=== PATIENT | female | born 1990 | race Caucasian/White ===

== ENCOUNTER → 2017-03-28 | Outpatient (REF) | payer BC | LOC: M SFHCWAGY 11:27 | PROVIDERS: ATTEND Nurse Practitioner Women's Health | DX: Z11.3 Encounter for screening for infections with a predominantly sexual mode of transmission (principal); N94.10 Unspecified dyspareunia ==

== ENCOUNTER → 2017-05-22 | Outpatient (REF) | payer BC | LOC: M SFHCWAGY 10:57 | PROVIDERS: ATTEND Nurse Practitioner Women's Health | DX: Z01.411 Encounter for gynecological examination (general) (routine) with abnormal findings (principal); R85.612 Low grade squamous intraepithelial lesion on cytologic smear of anus (LGSIL) ==

== ENCOUNTER → 2017-06-18 | Outpatient (REF) | payer BC | LOC: M SFHCWAGY 13:50 | PROVIDERS: ATTEND Nurse Practitioner Women's Health | DX: R87.612 Low grade squamous intraepithelial lesion on cytologic smear of cervix (LGSIL) (principal) ==

== ENCOUNTER → 2017-09-01 | Outpatient (REF) | payer BC | LOC: M WUC 08:39 | PROVIDERS: ATTEND Physician Assistant | DX: N39.0 Urinary tract infection, site not specified (principal) ==

== ENCOUNTER → 2017-12-18 | Outpatient (REF) | payer BC ==
[2017-12-19 00:39] LABS: CHLAMYDIA DNA AMPLIFICATION NEGATIVE (NEGATIVE); GC DNA AMPLIFICATION NEGATIVE (NEGATIVE)
== END ==
LOC: M SFHCWAGY 17:03
DX: N94.10 Unspecified dyspareunia (principal); N89.8 Other specified noninflammatory disorders of vagina
CPT/HCPCS: 87591

== ENCOUNTER → 2018-01-13 | Outpatient (REF) | payer BC ==
[2018-01-13 19:14] LABS: INFLUENZA A AMPLIFICATION NEGATIVE (NEGATIVE); INFLUENZA B AMPLIFICATION NEGATIVE (NEGATIVE)
== END ==
LOC: M LAB REF 18:28
DX: J11.1 Influenza due to unidentified influenza virus with other respiratory manifestations (principal)
CPT/HCPCS: 87502

== ENCOUNTER 2018-02-03 16:19 | Emergency (ER) | payer BC ==
[2018-02-03] MEDS: ALBUTEROL SULFATE 2.5 MG/0.5 ML INH NEB SOLN NEB (18:15)
[2018-02-03] MEDS: predniSONE 20 MG TAB PO (18:32)
[2018-02-03] MEDS: AUGMENTIN 875 MG TAB PO (18:32)
[2018-02-03] MEDS: BENZONATATE 100 MG CAP PO (18:32)
[2018-02-03 18:43] LABS: KETONE, URINE AUTO RFX NEGATIVE (NEGATIVE); LEUKOCYTE ESTERASE UR AUTO RFX NEGATIVE (NEGATIVE); MUCUS, URINE RFX SMALL (NEGATIVE); NITRITE, URINE AUTO RFX NEGATIVE (NEGATIVE); RBC, URINE AUTO RFX 2 /HPF (0-3); SPECIFIC GRAVITY UR AUTO RFX 1.018 (1.002-1.035); SQUAM EPITHELIAL CELL UR AURFX 1 /HPF (0-6); WBC, URINE AUTO RFX 2 /HPF (0-3)
== END 2018-02-03 19:54 | disposition home or self-care (01) ==
LOC: M ED 16:19
DX: H65.90 Unspecified nonsuppurative otitis media, unspecified ear (principal); J45.909 Unspecified asthma, uncomplicated; Z88.5 Allergy status to narcotic agent; Z79.3 Long term (current) use of hormonal contraceptives
CPT/HCPCS: 71046

== ENCOUNTER → 2018-07-03 | Outpatient (REF) | payer BC ==
[2018-07-03 17:11] LABS: ESTIMATED AVERAGE GLUCOSE 94 MG/DL (60-110); HEMOGLOBIN A1c 4.9 %
[2018-07-03 17:38] LABS: TOTAL 25(OH) VITAMIN D 29.7 NG/ML (30.0-100.0)
[2018-07-03 17:38] LABS: VITAMIN B12 LEVEL 1248 PG/ML (247-911)
[2018-07-03 17:43] LABS: BASO % 0.5 % (0.0-1.0); EOS # 0.1 10^3/uL (0.0-0.50); EOS % 0.8 % (0.0-3.0); HEMATOCRIT 37.6 % (36.0-47.0); HEMOGLOBIN 12.6 g/dl (12.0-15.5); IMMATURE GRANULOCYTE % 0.2 % (0-3.0); LYMPH # 1.9 10^3/uL (1.5-6.5); LYMPH % 29.8 % (24.0-44.0); MEAN CORPUSCULAR HEMOGLOBIN 28.6 pg (27.0-33.0); MEAN CORPUSCULAR HGB CONC 33.5 g/dl (32.0-36.5); MEAN CORPUSCULAR VOLUME 85.3 fl (80.0-96.0); MONO # 0.4 10^3/uL (0.0-0.8); MONO % 6.1 % (0.0-5.0); NEUTROPHILS # 3.9 10^3/uL (1.8-7.7); NEUTROPHILS % 62.6 % (36.0-66.0); PLATELET COUNT, AUTOMATED 348 10^3/uL (150-450); RED BLOOD COUNT 4.41 10^6/uL (4.00-5.40); RED CELL DISTRIBUTION WIDTH 13.3 % (11.5-14.5); WHITE BLOOD COUNT 6.2 10^3/uL (4.0-10.0)
[2018-07-03 18:23] LABS: ALBUMIN 3.6 GM/DL (3.2-5.2); ALKALINE PHOSPHATASE 70 U/L (45-117); ALT/SGPT 34 U/L (12-78); ANION GAP 10 MEQ/L (8-16); AST/SGOT 29 U/L (7-37); BILIRUBIN,TOTAL 0.6 MG/DL (0.2-1.0); BLOOD UREA NITROGEN 13 MG/DL (7-18); CALCIUM LEVEL 8.8 MG/DL (8.5-10.1); CARBON DIOXIDE LEVEL 24 MEQ/L (21-32); CHLORIDE LEVEL 106 MEQ/L (98-107); CHOLESTEROL LEVEL 164 MG/DL (<200); CHOLESTEROL RISK RATIO 2.376 (<5); CREATININE FOR GFR 0.84 MG/DL (0.55-1.30); GLOMERULAR FILTRATION RATE > 60.0 (>60); GLUCOSE, FASTING 76 MG/DL (70-100); HDL CHOLESTEROL 69 MG/DL (>40); LDL CHOLESTEROL 82.8 MG/DL (<100); NON-HDL-C 95 MG/DL; POTASSIUM SERUM 4.5 MEQ/L (3.5-5.1); SODIUM LEVEL 140 MEQ/L (136-145); TOTAL PROTEIN 7.2 GM/DL (6.4-8.2); TRIGLYCERIDES LEVEL 61 MG/DL (<150)
== END ==
LOC: M SFHCCAPE 08:35
DX: F41.9 Anxiety disorder, unspecified (principal); Z13.6 Encounter for screening for cardiovascular disorders
CPT/HCPCS: 84443

== ENCOUNTER → 2018-07-17 | Outpatient (CLI) | payer BC | LOC: M RAD 12:44 | DX: J32.0 Chronic maxillary sinusitis (principal) | CPT/HCPCS: 70486 ==

== ENCOUNTER → 2018-07-23 | Outpatient (REF) | payer BC ==
[2018-07-25 15:01] LABS: HPV HYBRID CAPTURE II Negative (Negative)
== END ==
LOC: M SFHCWAGY 10:57
DX: Z12.4 Encounter for screening for malignant neoplasm of cervix (principal)
CPT/HCPCS: G0123

== ENCOUNTER → 2018-12-05 | Outpatient (REF) | payer OTHER ==
[~2018-12-05] MED LIST: AUGM875T28 PO; DOXY200C PO; ORSYTAB; PRED20TA PO; QVAR80AE10 IN
== END ==
LOC: M SFHCWAGY 13:02
PROVIDERS: ATTEND Nurse Practitioner Women's Health
DX: Z11.4 Encounter for screening for human immunodeficiency virus [HIV] (principal)

== ENCOUNTER → 2019-01-20 | Outpatient (CLI) | payer OTHER ==
--- NOTE | 2019-01-21 16:04 | SLEEPHOME ---
DATE OF PROCEDURE: 01/20/2019 ORDERED BY: Rhoda Bailey Diagnostic home sleep testing was performed for evaluation of sleep apnea syndrome symptoms in this patient with a history of excessive somnolence and nonrestorative sleep. For testing a nocturnal T3 respiratory monitoring device was used. Continuous record was made of pulse, oxygen saturation, airflow, chest, abdominal strain and body position. 9 hours and 59 minutes of data were reviewed. Of these, 6 hours and 2 minutes were marked as time in bed. During the interval marked time in bed, there were 32 respiratory events identified of 10 seconds in duration or greater. The events were not exclusive to sleep position. They were primarily obstructive. The patient's baseline pulse rate was 55 beats per minute, pulse rate ranged from 46-99. Baseline saturation 96%, saturations were seen to 81%. The oxygen desaturation index was 1.8. Testing was performed in both the supine and nonsupine positions. IMPRESSION: Abnormal home sleep testing with repetitive respiratory events and oxygen desaturations to 81% with a respiratory event index of 5.3 is consistent with the obstructive sleep apnea syndrome. RECOMMENDATIONS: The patient should be encouraged to undergo a formal sleep evaluation and in laboratory pressure titration.
== END ==
LOC: M SLEEP HO 13:53
PROVIDERS: ATTEND Nurse Practitioner Family
DX: R40.0 Somnolence (principal)

== ENCOUNTER → 2019-03-21 | Outpatient (REF) | payer OTHER ==
[2019-03-21 13:16] LABS: FREE THYROXINE INDEX 2.7 % (1.3-4.8); THYROID STIMULATING HORMONE 2.26 uIU/ML (0.358-3.740); THYROXINE (T4) 9.1 UG/DL (4.5-12.0)
== END ==
LOC: M SFHCWAGY 03-20 09:00
PROVIDERS: ATTEND Nurse Practitioner Women's Health
DX: R68.82 Decreased libido (principal)

== ENCOUNTER → 2019-04-01 | Outpatient (REF) | payer OTHER ==
[2019-04-01 19:00] LABS: APPEARANCE, URINE CLEAR (CLEAR); BACTERIA, URINE AUTO 1+ (NEGATIVE); BILIRUBIN, URINE AUTO NEGATIVE (NEGATIVE); BLOOD, URINE BLOOD NEGATIVE (NEGATIVE); COLOR, URINE YELLOW (YELLOW); GLUCOSE, URINE (UA) AUTO NEGATIVE (NEGATIVE); KETONE, URINE AUTO NEGATIVE (NEGATIVE); LEUKOCYTE ESTERASE, URINE AUTO NEGATIVE (NEGATIVE); NITRITE, URINE AUTO NEGATIVE (NEGATIVE); PROTEIN, URINE AUTO NEGATIVE (NEGATIVE); RBC, URINE AUTO 0 /HPF (0-3); SPECIFIC GRAVITY URINE AUTO 1.003 (1.002-1.035); SQUAMOUS EPITHELIAL CELL UR AU 1 /HPF (0-6); UROBILINOGEN, URINE AUTO 0.2 mg/dL (0.0-2.0); WBC, URINE AUTO 0 /HPF (0-3)
[2019-04-01 20:08] LABS: CHLAMYDIA DNA AMPLIFICATION NEGATIVE (NEGATIVE); GC DNA AMPLIFICATION NEGATIVE (NEGATIVE)
== END ==
LOC: M SFHCCAPE 13:16
PROVIDERS: ATTEND Physician Assistant
DX: R10.2 Pelvic and perineal pain (principal)

== ENCOUNTER → 2019-04-07 | Outpatient (CLI) | payer OTHER ==
--- NOTE | 2019-04-08 06:19 | REP ---
Clinical: Pelvic pain and dyspareunia . Technique: Transabdominal pelvic ultrasound followed by transvaginal examination for better evaluation of the endometrium and adnexa with color Doppler evaluation of the ovaries. Findings: Bladder is unremarkable and measures 9.3 x 5.6 x 8.7 cm . Normal anteverted uterus measures 7.9 x 3.1 x 5.2 cm . The endometrial complex measures 4.8 mm thickness. No discrete uterine or endometrial abnormalities are appreciated. Bilateral ovaries are normal in appearance and vascularity without evidence for torsion. Right ovary measures 2.2 x 2.1 x 2.2 cm zero ; R I = 0.43 . Left ovary measures 5.1 x 3.1 x 4.6 cm with 4.6 cm complex cyst with debris; R I = 0.56 . No pelvic fluid or adnexal mass lesion . Impression: 1. 4.6 cm complex cyst in the left ovary. 2. No further acute process appreciated.
== END ==
LOC: M WHC 08:12
PROVIDERS: ATTEND Physician Assistant
DX: N83.202 Unspecified ovarian cyst, left side (principal); N94.10 Unspecified dyspareunia

== ENCOUNTER → 2019-09-23 | Outpatient (REF) | payer OTHER | LOC: M SFHCWAGY 10:29 | PROVIDERS: ATTEND Nurse Practitioner Women's Health | DX: Z12.4 Encounter for screening for malignant neoplasm of cervix (principal) ==

== ENCOUNTER → 2019-10-16 | Outpatient (CLI) | payer OTHER ==
--- NOTE | 2019-10-16 16:49 | REP ---
Chest x-ray: Two views. History: Cough. Comparison study: February 03, 2018. Findings: The lungs are well inflated and free of infiltrate. The pleural angles are sharp. The heart size is normal. Pulmonary vasculature is not increased. No significant bony abnormality is seen. Impression: Negative chest x-ray. Electronically Signed by Jaison Quiles MD 10/16/2019 04:40 P
== END ==
LOC: M LRY 16:07
PROVIDERS: ATTEND Physician Assistant
DX: R05 Cough (principal)

== ENCOUNTER → 2020-04-15 | Outpatient (CLI) | payer BC | LOC: M LABSMTC 13:31 | PROVIDERS: ATTEND Pediatrics | DX: Z11.59 Encounter for screening for other viral diseases (principal) ==

== ENCOUNTER → 2020-07-06 | Outpatient (CLI) | payer BC ==
[2020-07-06 18:27] LABS: BASO % 0.3 % (0.0-1.0); EOS # 0.1 10^3/uL (0.0-0.5); EOS % 0.4 % (0.0-3.0); HEMATOCRIT 38.7 % (36.0-47.0); HEMOGLOBIN 12.7 g/dl (12.0-15.5); LYMPH # 2.3 10^3/uL (1.5-5.0); LYMPH % 19.2 % (24.0-44.0); MEAN CORPUSCULAR HGB CONC 32.8 g/dl (32.0-36.5); MEAN CORPUSCULAR VOLUME 88.4 fl (80.0-96.0); MONO # 0.9 10^3/uL (0.0-0.8); MONO % 7.1 % (0.0-5.0); NEUTROPHILS # 8.7 10^3/uL (1.5-8.5); NEUTROPHILS % 72.6 % (36.0-66.0); PLATELET COUNT, AUTOMATED 339 10^3/uL (150-450); RED BLOOD COUNT 4.38 10^6/uL (4.00-5.40)
[2020-07-06 19:19] LABS: HEPATITIS C VIRUS ABY INDEX 0.2 INDEX (<0.8); HIV 1&2 SCREEN CENTAUR NEGATIVE (NEGATIVE)
[2020-07-06 21:33] LABS: CHLAMYDIA DNA AMPLIFICATION NEGATIVE (NEGATIVE); GC DNA AMPLIFICATION NEGATIVE (NEGATIVE)
== END ==
LOC: M PLALAB 15:31
PROVIDERS: ATTEND Advanced Practice Midwife
DX: Z34.01 Encounter for supervision of normal first pregnancy, first trimester (principal); Z3A.00 Weeks of gestation of pregnancy not specified

== ENCOUNTER → 2020-08-30 | Outpatient (REF) | payer BC, OTHER | LOC: M SFHCWAGY 13:25 | PROVIDERS: ATTEND Advanced Practice Midwife | DX: Z34.02 Encounter for supervision of normal first pregnancy, second trimester (principal) ==

== ENCOUNTER → 2020-09-09 | Outpatient (CLI) | payer BC ==
--- NOTE | 2020-09-09 09:18 | REP ---
INDICATION: ANATOMY. Supervision of . COMPARISON: None. TECHNIQUE: Transabdominal obstetric sonography. FINDINGS: Scanning through the gravid uterus demonstrates a viable single intrauterine gestation in transverse, head to the maternal left lie. motion is observed and heart rate is recorded at 158 beats per minute. A posterior placenta is seen, grade 0, without evidence of placenta previa. Amniotic fluid is subjectively normal. Closed cervical length is measured at 3.7 cm transabdominally. No extrauterine abnormality is observed. The following anatomic structures are less than optimally seen due to position and early gestational age: nose and lips, four-chamber heart with left and right ventricular outflow tract views, and diaphragm. The following anatomic structures are identified felt to be unremarkable: cranium intracranial anatomy, facial profile, left-sided stomach, right and left kidney, urinary bladder, spine, upper and lower extremities, three-vessel cord.. Biometry chart: BPD 3.9 cm, 17 weeks 6 days Head circumference 14.8 cm, 17 weeks 6 days Abdominal circumference 12.3 cm, 17 weeks 6 days Femur length 2.6 cm, 18 weeks 0 days Humeral length 2.5 cm, 17 weeks 6 days HC AC ratio normal 1.21 Cephalic index normal 0.73 Estimated weight 217 g, 0 lb 7 oz, 42nd percentile for 18 weeks 0 days IMPRESSION: Viable single intrauterine gestation at 17 weeks 6 days by today's composite sonographic criteria. MIGNON by today's sonography February 11, 2021.. No complication identified. anatomic survey less than complete as above regarding heart and nose and lips and diaphragm. <Electronically signed by Enio Quiles > 09/09/20 0910
== END ==
LOC: M WHC 07:51
PROVIDERS: ATTEND Advanced Practice Midwife
DX: Z34.02 Encounter for supervision of normal first pregnancy, second trimester (principal); Z3A.17 17 weeks gestation of pregnancy

== ENCOUNTER → 2020-10-07 | Outpatient (CLI) | payer BC ==
--- NOTE | 2020-10-08 07:38 | REP ---
INDICATION: F/U ANATOMY COMPARISON: 09/09/2020 TECHNIQUE: Transabdominal obstetrical ultrasound with color Doppler evaluation. FINDINGS: Examination demonstrates a single live intrauterine in transverse presentation. motion is identified by technologist. Placenta is noted posterior and grade 0 without evidence for placenta previa or abruption. Amniotic fluid volume is normal. Cervix measures 3.1 cm in length and appears closed.. Gestational age by LMP 22 weeks 0 days with MIGNON 02/10/2021. Gestational age by current measurements 21 weeks 5 days with MIGNON 02/12/2021. FHR equals 129 beats per minute. Estimated weight 436 grams (25thpercentile). Anatomical assessment demonstrates normal nose/lips, heart/ventricular outflow tract. IMPRESSION: Single live intrauterine in transverse lie demonstrating appropriate estimated weight and growth. In conjunction with prior examination anatomical assessment is complete and normal. <Electronically signed by Moncho Petersen > 10/08/20 0725
== END ==
LOC: M WHC 09:01
PROVIDERS: ATTEND Obstetrics & Gynecology
DX: O32.2XX0 Maternal care for transverse and oblique lie, not applicable or unspecified (principal); Z36.2 Encounter for other antenatal screening follow-up; Z3A.22 22 weeks gestation of pregnancy

== ENCOUNTER → 2020-10-25 | Outpatient (REF) | payer BC | LOC: M SFHCWAGY 13:16 | PROVIDERS: ATTEND Advanced Practice Midwife | DX: Z36.89 Encounter for other specified antenatal screening (principal); Z3A.24 24 weeks gestation of pregnancy ==

== ENCOUNTER → 2020-11-18 | Outpatient (REF) | payer BC ==
[2020-11-18 14:07] LABS: HEMATOCRIT 35.1 % (36.0-47.0); HEMOGLOBIN 11.3 g/dl (12.0-15.5); MEAN CORPUSCULAR HEMOGLOBIN 29.2 pg (27.0-33.0); MEAN CORPUSCULAR HGB CONC 32.2 g/dl (32.0-36.5); MEAN CORPUSCULAR VOLUME 90.7 fl (80.0-96.0); PLATELET COUNT, AUTOMATED 277 10^3/uL (150-450); RED BLOOD COUNT 3.87 10^6/uL (4.00-5.40); WHITE BLOOD COUNT 15.2 10^3/uL (4.0-10.0)
== END ==
LOC: M PLALAB 09:47
PROVIDERS: ATTEND Advanced Practice Midwife
DX: Z34.02 Encounter for supervision of normal first pregnancy, second trimester (principal)